=== PATIENT | male | born 1975 | race Caucasian/White ===

== ENCOUNTER 2017-09-27 18:50 | Emergency (ER) | payer MEDICAID, OTHER ==
[2017-09-27] MEDS ORDERED: ACETAMINOPHEN 160 MG/5ML CUP PO (23:40)
== END 2017-09-28 00:05 | disposition home or self-care (01) ==
LOC: FTE 09-28 00:05
DX: G44.209 Tension-type headache, unspecified, not intractable (principal)
CPT/HCPCS: 70450; 99284-25